=== PATIENT | male | born 1985 | race Caucasian/White ===

== ENCOUNTER 2024-05-07 05:48 | Emergency (ER) | payer OTHER ==
[~2024-05-07] VITALS: Ht 185.4 cm; Wt 82.2 kg
[2024-05-07 06:21] LABS: BILIRUBIN, URINE NEGATIVE (negative); BLOOD/HGB, URINE NEGATIVE (Negative); KETONE, URINE NEGATIVE (Negative); LEUK ESTERASE, URINE NEGATIVE (negative); NITRITE, URINE NEGATIVE (negative); PH, URINE 6.5 (5-7)
[2024-05-07 07:49] LABS: N. GONORRRHOEAE BY PCR NOT DETECTED (NOT DETECT)
[2024-05-07 08:25] VITALS: BP 118/71
== END 2024-05-07 08:26 | disposition home or self-care (01) ==
LOC: ED 05:48
PROVIDERS: Internal Medicine
DX: N50.812 Left testicular pain (principal); Z98.52 Vasectomy status
CPT/HCPCS: 76870; 81003; 99284-25